=== PATIENT | female | born 1985 | race African-American/Black ===

== ENCOUNTER 2016-11-12 11:18 | Emergency (ER) | payer SELFPAY ==
[~2016-11-12] VITALS: Ht 157.5 cm; Wt 59.0 kg
[2016-11-12 11:19] VITALS: BP 121/73; PULSE 74; RESP 16; TEMP 98.8; O2SAT 100
--- NOTE | 2016-11-12 11:26 | PD ---
Physical Exam Date Seen by Provider: November 12, 2016 Time Seen by Provider: 11:23 Narrative Pt presents c/o weakness, back pain, abdominal pain. She states when she stands up she feels as if she will "fall out". Pt hasn't been eating due to nausea. She reports diarrhea, unknown fevers. Symptoms started Wednesday. No sick contacts. LMP years ago. No dysuria. Pain feels tight in her abdomen. VSS, awaiting bed placement,. Data Data Last Documented VS Vital Signs Date Time Temp Pulse Resp B/P Pulse Ox O2 Delivery O2 Flow Rate FiO2 11/12/16 11:19 98.8 74 16 121/73 100 Room Air [facility] Supervised Visit with CELY: Adriana Caro November 12, 2016 11:26
--- NOTE | 2016-11-12 11:40 | PD ---
HPI Chief Complaint: General Weakness Time Seen by Provider: 11:40 Travel History International Travel<30 days: No Contact w/Intl Traveler<30days: No Traveled to known affect area: No History of Present Illness HPI 31 Year-old female presents to the emergency department for evaluation of flank pain, urinary urgency, frequency, nausea, and she felt like she was going to pass out today. Patient states she has not eaten much today because of her nausea. Patient denies any recent illnesses, fever, chills. She has not actually vomited. Denies any bowel changes. Patient states she is relatively healthy. Denies any tea is a but cannot recall when her last menstrual cycle was. She denies a vaginal discharge or bleeding. She has no other symptoms to report. [facility] Past Medical History Medical History: Denies Significant Hx ?: Not LMP: years Social History Alcohol Use: No Tobacco Use: No Substance Use: No Allergies-Medications (Allergen,Severity, Reaction): Coded Allergies: No Known Allergies (Unverified , 11/12/16) Review of Systems Except as stated in HPI: all other systems reviewed are Neg Physical Exam Narrative GENERAL: Well-nourished female patient, ambulatory and in no acute distress SKIN: Focused skin assessment warm/dry. HEAD: Atraumatic. Normocephalic. EYES: Pupils equal and round. No scleral icterus. No injection or drainage. ENT: No nasal bleeding or discharge. Mucous membranes pink and moist. NECK: Trachea midline. No JVD. CARDIOVASCULAR: Regular rate and rhythm. No murmur appreciated. RESPIRATORY: No accessory muscle use. Clear to auscultation. Breath sounds equal bilaterally. GASTROINTESTINAL: Abdomen soft, non-tender, nondistended. Hepatic and splenic margins not palpable. MUSCULOSKELETAL: No obvious deformities. No clubbing. No cyanosis. No edema. NEUROLOGICAL: Awake and alert. No obvious cranial nerve deficits. Motor grossly within normal limits. Normal speech. PSYCHIATRIC: Appropriate mood and affect; insight and judgment normal. Data Data Last Documented VS Vital Signs Date Time Temp Pulse Resp B/P Pulse Ox O2 Delivery O2 Flow Rate FiO2 11/12/16 13:43 63 18 110/74 100 11/12/16 12:09 Room Air 11/12/16 11:19 98.8 Orders Complete Blood Count With Diff (11/12/16 11:43) Comprehensive Metabolic Panel (11/12/16 11:43) Lipase (11/12/16 11:43) Urinalysis - C+S If Indicated (11/12/16 11:43) Iv Access Insert/Monitor (11/12/16 11:43) Ecg Monitoring (11/12/16 11:43) Oximetry (11/12/16 11:43) Ondansetron Inj (Zofran Inj) (11/12/16 11:45) Sodium Chlor 0.9% 1000 Ml Inj (Ns 1000 M (11/12/16 11:43) Sodium Chloride 0.9% Flush (Ns Flush) (11/12/16 11:45) Ketorolac Inj (Toradol Inj) (11/12/16 11:45) Ed Urine Pregnancytest Poc (11/12/16 11:43) Labs Laboratory Tests Test 11/12/16 11/12/16 12:00 12:05 Urine Color YELLOW Urine Turbidity HAZY Urine pH 6.5 Urine Specific Hosmer 1.035 Urine Protein TRACE mg/dL Urine Glucose (UA) NEG mg/dL Urine Ketones NEG mg/dL Urine Occult Blood NEG Urine Nitrite NEG Urine Bilirubin NEG Urine Urobilinogen LESS THAN 2.0 MG/DL Urine Leukocyte Esterase NEG Urine RBC 1 /hpf Urine WBC 1 /hpf Urine Squamous Epithelial 13 /hpf Cells Urine Bacteria RARE /hpf Urine Hyaline Casts 1 /lpf Urine Mucus MANY /lpf Microscopic Urinalysis Comment CULT NOT INDICATED White Blood Count 10.3 TH/MM3 Red Blood Count 4.61 MIL/MM3 Hemoglobin 13.3 GM/DL Hematocrit 39.3 % Mean Corpuscular Volume 85.2 FL Mean Corpuscular Hemoglobin 28.8 PG Mean Corpuscular Hemoglobin 33.7 % Concent Red Cell Distribution Width 13.2 % Platelet Count 268 TH/MM3 Mean Platelet Volume 7.7 FL Neutrophils (%) (Auto) 57.9 % Lymphocytes (%) (Auto) 31.1 % Monocytes (%) (Auto) 8.4 % Eosinophils (%) (Auto) 2.1 % Basophils (%) (Auto) 0.5 % Neutrophils # (Auto) 6.0 TH/MM3 Lymphocytes # (Auto) 3.2 TH/MM3 Monocytes # (Auto) 0.9 TH/MM3 Eosinophils # (Auto) 0.2 TH/MM3 Basophils # (Auto) 0.1 TH/MM3 CBC Comment DIFF FINAL Differential Comment Sodium Level 138 MEQ/L Potassium Level 4.1 MEQ/L Chloride Level 103 MEQ/L Carbon Dioxide Level 29.2 MEQ/L Anion Gap 6 MEQ/L Blood Urea Nitrogen 15 MG/DL Creatinine 0.64 MG/DL Estimat Glomerular Filtration 108 ML/MIN Rate Random Glucose 90 MG/DL Calcium Level 9.0 MG/DL Total Bilirubin 0.5 MG/DL Aspartate Amino Transf 17 U/L (AST/SGOT) Alanine Aminotransferase 20 U/L (ALT/SGPT) Alkaline Phosphatase 75 U/L Total Protein 7.4 GM/DL Albumin 3.7 GM/DL Lipase 140 U/L [facility] Medical Decision Making Medical Screen Exam Complete: Yes Emergency Medical Condition: Yes Medical Record Reviewed: Yes Differential Diagnosis Normal examination versus hypoglycemia versus electrolyte abnormality versus UTI versus renal calculi versus gastritis versus viral syndrome Narrative Course 31-year-old female presents to emergency department for evaluation. Patient appears well and without distress. Her vital signs are stable. CBC and CMP are without acute concern. Urine is hazy with rare bacteria and many mucus. Culture is not indicated. Patient is given IV fluids. Upon assessment, she feels much better. She'll be discharged home at this time. She agrees to return immediately with any acute worsening of symptoms. Diagnosis Primary Impression: Flank pain Additional Impressions: Urinary urgency Light-headed feeling Referrals: Primary Care Physician Patient Instructions: Flank Pain (ED), General Instructions Departure Forms: Tests/Procedures, Work Release Enter return to work date: November 13, 2016 Additional Instructions: Maintain adequate oral hydration Follow-up with your primary care provider Return immediately with any acute worsening of symptoms Med/Other Pt SpecificInfo: No Change to Meds Disposition: 01 DISCHARGE HOME Condition: Stable GreeneRhona daley JAKE November 12, 2016 11:40
[2016-11-12] MEDS ORDERED: SODIUM CHLOR 0.9% 1000 ML INJ 1,000 ML IV SCH (11:43)
[2016-11-12] MEDS ORDERED: KETOROLAC TROMETHAMINE 30 MG/ML (IVP) VIAL IVP ONE (11:45)
[2016-11-12] MEDS ORDERED: SODIUM CHLORIDE 0.9% FLUSH 10 ML FLUSH IV FLUSH PRN (11:45)
[2016-11-12] MEDS ORDERED: ONDANSETRON HCL 4 MG/2 ML VIAL IVP ONE (11:45)
[2016-11-12 12:09] VITALS: BP 110/74; PULSE 74; RESP 16; O2SAT 100
[2016-11-12 12:21] LABS: BASOPHIL # 0.1 TH/MM3 (0-0.2); BASOPHIL % 0.5 % (0.0-2.0); EOSINOPHIL # 0.2 TH/MM3 (0-0.4); EOSINOPHIL % 2.1 % (0.0-4.0); HEMATOCRIT 39.3 % (35.0-46.0); HEMO FLAGS DIFF FINAL; LYMPH % 31.1 % (9.0-44.0); LYMPHOCYTE # 3.2 TH/MM3 (1.0-4.8); MEAN CELL VOLUME 85.2 FL (80.0-100.0); MEAN CORPUSCULAR HEMOGLOBIN 28.8 PG (27.0-34.0); MEAN CORPUSCULAR HGB CONC 33.7 % (32.0-36.0); MONO % 8.4 % (0.0-8.0); NEUT % 57.9 % (16.0-70.0); PLATELET COUNT 268 TH/MM3 (150-450); RED BLOOD COUNT 4.61 MIL/MM3 (4.00-5.30); RED CELL DISTRIBUTION WIDTH 13.2 % (11.6-17.2); WHITE BLOOD COUNT 10.3 TH/MM3 (4.0-11.0)
[2016-11-12 12:36] LABS: ANION GAP 6 MEQ/L (5-15); AST (GOT) 17 U/L (15-37); BICARBONATE 29.2 MEQ/L (21.0-32.0); BLOOD UREA NITROGEN 15 MG/DL (7-18); CHLORIDE 103 MEQ/L (98-107); GLOMERULAR FILTRATION RATE 108 ML/MIN (>89); POTASSIUM 4.1 MEQ/L (3.5-5.1); SODIUM (NA) 138 MEQ/L (136-145)
[2016-11-12 12:39] LABS: ALKALINE PHOSPHATASE 75 U/L (45-117); ALT (GPT) 20 U/L (10-53); TOTAL BILIRUBIN ADULT 0.5 MG/DL (0.2-1.0)
[2016-11-12 12:44] LABS: BACTERIA, URINE RARE /hpf; BLOOD, URINE NEG (NEG); COMMENT (UR) CULT NOT INDICATED; CULTURE IF INDICATED CULT NOT INDICATED; GLUCOSE,URINE NEG (NEG); HYALINE CAST, URINE 1 /lpf (RARE); KETONE, URINE NEG (NEG); MUCUS URINE MANY /lpf (OCC); NITRITE,URINE NEG (NEG); PH, URINE 6.5 (5.0-8.5); SQUAMOUS EPITHELIAL CELL URINE 13 /hpf (0-5); URINE COLOR YELLOW (YELLW/STRAW)
[2016-11-12 13:43] VITALS: BP 110/74
== END 2016-11-12 13:49 | disposition home or self-care (01) ==
LOC: NEPD 11:18
DX: R10.84 Generalized abdominal pain (principal); R39.15 Urgency of urination; R42 Dizziness and giddiness
CPT/HCPCS: 80053; 81001; 83690; 84703; 85025; 96361; 96374; 96375; 99283; J1885; J2405; J7030

== ENCOUNTER 2017-03-30 21:50 | Emergency (ER) | payer SELFPAY ==
[~2017-03-30] VITALS: Ht 157.5 cm; Wt 60.0 kg
[2017-03-30 21:53] VITALS: BP 125/89; PULSE 89; RESP 16; TEMP 98.8; O2SAT 98
[2017-03-31] MEDS ORDERED: ONDANSETRON HCL 4 MG/2 ML VIAL IVP ONE (00:15)
[2017-03-31] MEDS ORDERED: AZITHROMYCIN PWD FOR SUSP 1 GM PACKET PO ONE (00:15)
[2017-03-31] MEDS ORDERED: cefTRIAXone INJ 1,000 MG in SODIUM CHLORIDE 0.9% INJ 100 ML IV ONE (00:15)
[2017-03-31] MEDS ORDERED: KETOROLAC TROMETHAMINE 30 MG/ML (IVP) VIAL IV PUSH ONE (00:15)
--- NOTE | 2017-03-31 00:47 | PD ---
HPI Chief Complaint: Abdominal Pain Time Seen by Provider: 23:51 Travel History International Travel<30 days: No Contact w/Intl Traveler<30days: No Traveled to known affect area: No History of Present Illness HPI C/O SUPRAPUBIC DISCOMFORT, NONRAD, PRESSURE, 6/10, ASSOC WITH VAG DC PER PT, DENIES N/V/D/FEVER, ONGOING FOR LAST 2 DAYS...NO ALLEVIATING/AGGRAVATING FACTORS PFSH Past Medical History ?: Not Social History Alcohol Use: No Tobacco Use: No Substance Use: No Allergies-Medications (Allergen,Severity, Reaction): Coded Allergies: No Known Allergies (Unverified , 03/30/17) Reported Meds & Prescriptions Reported Meds & Active Scripts Active Gyne-Lotrimin 3 Vaginal (Clotrimazole Vaginal) 2% Cream 1 Appl VAGINAL HS Fluconazole 150 Mg Tab 150 Mg PO ONCE Review of Systems Except as stated in HPI: all other systems reviewed are Neg Gastrointestinal: Positive: Abdominal Pain (SUPRAPUBIC) Genitourinary: Positive: Discharge Physical Exam Narrative GENERAL: SKIN: Warm and dry. HEAD: Atraumatic. Normocephalic. EYES: Pupils equal and round. No scleral icterus. No injection or drainage. ENT: No nasal bleeding or discharge. Mucous membranes pink and moist. NECK: Trachea midline. No JVD. CARDIOVASCULAR: Regular rate and rhythm. RESPIRATORY: No accessory muscle use. Clear to auscultation. Breath sounds equal bilaterally. GASTROINTESTINAL: Abdomen soft, non-tender, nondistended. PELVIC PERFORMED WITH KAUSHAL ALLRED AT BEDSIDE: NO CMT, WHITE D/C NOTED THROUGHOUT VAULT. MUSCULOSKELETAL: Extremities without clubbing, cyanosis, or edema. No obvious deformities. NEUROLOGICAL: Awake and alert. No obvious cranial nerve deficits. Motor grossly within normal limits. Five out of 5 muscle strength in the arms and legs. Normal speech. PSYCHIATRIC: Appropriate mood and affect; insight and judgment normal. Data Data Last Documented VS Vital Signs Date Time Temp Pulse Resp B/P (MAP) Pulse Ox O2 Delivery O2 Flow Rate FiO2 03/31/17 03:08 70 18 118/62 (80) 99 03/30/17 21:53 98.8 Room Air Orders Orders Complete Blood Count With Diff (03/31/17 00:10) Comprehensive Metabolic Panel (03/31/17 00:10) Gc And Chlamydia Pcr (03/31/17 00:10) Wet Prep Profile (03/31/17 00:10) Iv Access Insert/Monitor (03/31/17 00:10) Ceftriaxone Inj (Rocephin Inj) (03/31/17 00:15) Azithromycin Powd Pack (Zithromax Powd P (03/31/17 00:15) Ondansetron Inj (Zofran Inj) (03/31/17 00:15) Ed Urine Pregnancytest Poc (03/31/17 00:10) Ketorolac Inj (Toradol Inj) (03/31/17 00:15) Labs Laboratory Tests Test 03/31/17 00:40 White Blood Count 9.3 TH/MM3 Red Blood Count 4.49 MIL/MM3 Hemoglobin 12.9 GM/DL Hematocrit 38.4 % Mean Corpuscular Volume 85.6 FL Mean Corpuscular Hemoglobin 28.8 PG Mean Corpuscular Hemoglobin Concent 33.6 % Red Cell Distribution Width 14.1 % Platelet Count 266 TH/MM3 Mean Platelet Volume 7.6 FL Neutrophils (%) (Auto) 52.8 % Lymphocytes (%) (Auto) 33.5 % Monocytes (%) (Auto) 10.4 % Eosinophils (%) (Auto) 2.7 % Basophils (%) (Auto) 0.6 % Neutrophils # (Auto) 4.9 TH/MM3 Lymphocytes # (Auto) 3.1 TH/MM3 Monocytes # (Auto) 1.0 TH/MM3 Eosinophils # (Auto) 0.2 TH/MM3 Basophils # (Auto) 0.1 TH/MM3 CBC Comment DIFF FINAL Differential Comment Clue Cells (Wet Prep) NONE SEEN Vaginal Trichomonas (Wet Prep) NONE SEEN Vaginal Yeast (Wet Prep) NONE SEEN Blood Urea Nitrogen 20 MG/DL Creatinine 0.70 MG/DL Random Glucose 93 MG/DL Total Protein 7.8 GM/DL Albumin 3.6 GM/DL Calcium Level 9.0 MG/DL Alkaline Phosphatase 80 U/L Aspartate Amino Transf (AST/SGOT) 14 U/L Alanine Aminotransferase (ALT/SGPT) 24 U/L Total Bilirubin 0.4 MG/DL Sodium Level 135 MEQ/L Potassium Level 4.4 MEQ/L Chloride Level 102 MEQ/L Carbon Dioxide Level 27.1 MEQ/L Anion Gap 6 MEQ/L Estimat Glomerular Filtration Rate 118 ML/MIN Chlamydia trachomatis DNA (PCR) NOT DETECTED Neisseria gonorrhoeae DNA (PCR) NOT DETECTED MDM Medical Decision Making Medical Screen Exam Complete: Yes Emergency Medical Condition: Yes Medical Record Reviewed: Yes Differential Diagnosis UTI V PREG RELATED V VAGINITIS Narrative Course AFTER EVALUATION NO D/C C/W GONORRHEA OR CHLAMYDIA SO ABX ORDERS DISCONTINUED AND PATIENT ADVISED OF DX, ALSO ADVISED THAT SHOULD STD TEST COME BACK POSITIVE WILL BE CALLED BACK AND PROVIDED WITH PHARMACY RX...PT VOICES UNDERSTANDING Diagnosis Primary Impression: JUNG VAGINITIS Patient Instructions: General Instructions, Vulvovaginal Candidiasis (ED) Scripts Clotrimazole Vaginal (Gyne-Lotrimin 3 Vaginal) 2% Cream 1 APPL VAGINAL HS for Fungal Infection, #21 GM 0 Refills Prov: Rojelio Ramirez MD 03/31/17 Fluconazole (Fluconazole) 150 Mg Tab 150 MG PO ONCE for Infection, #1 TAB 0 Refills Prov: Rojelio Ramirez MD 03/31/17 Disposition: 01 DISCHARGE HOME Condition: Stable Rojelio Ramirez MD Mar 31, 2017 00:47
[2017-03-31 01:02] LABS: AUTOMATED NEUTROPHIL # 4.9 TH/MM3 (1.8-7.7); BASOPHIL # 0.1 TH/MM3 (0-0.2); BASOPHIL % 0.6 % (0.0-2.0); EOSINOPHIL # 0.2 TH/MM3 (0-0.4); EOSINOPHIL % 2.7 % (0.0-4.0); HEMATOCRIT 38.4 % (35.0-46.0); HEMO FLAGS DIFF FINAL; LYMPH % 33.5 % (9.0-44.0); LYMPHOCYTE # 3.1 TH/MM3 (1.0-4.8); MEAN CELL VOLUME 85.6 FL (80.0-100.0); MEAN CORPUSCULAR HEMOGLOBIN 28.8 PG (27.0-34.0); MEAN CORPUSCULAR HGB CONC 33.6 % (32.0-36.0); MONO % 10.4 % (0.0-8.0); NEUT % 52.8 % (16.0-70.0); PLATELET COUNT 266 TH/MM3 (150-450); RED BLOOD COUNT 4.49 MIL/MM3 (4.00-5.30); RED CELL DISTRIBUTION WIDTH 14.1 % (11.6-17.2); WHITE BLOOD COUNT 9.3 TH/MM3 (4.0-11.0)
[2017-03-31 01:12] LABS: ANION GAP 6 MEQ/L (5-15); AST (GOT) 14 U/L (15-37); BICARBONATE 27.1 MEQ/L (21.0-32.0); BLOOD UREA NITROGEN 20 MG/DL (7-18); CHLORIDE 102 MEQ/L (98-107); GLOMERULAR FILTRATION RATE 118 ML/MIN (>89); POTASSIUM 4.4 MEQ/L (3.5-5.1); SODIUM (NA) 135 MEQ/L (136-145)
[2017-03-31 01:21] LABS: ALKALINE PHOSPHATASE 80 U/L (45-117); ALT (GPT) 24 U/L (10-53); TOTAL BILIRUBIN ADULT 0.4 MG/DL (0.2-1.0)
[2017-03-31 02:45] LABS: CHLAMYDIA PCR NOT DETECTED (NOT DETECT); NEISSERIA PCR NOT DETECTED (NOT DETECT)
[2017-03-31] MEDS ORDERED: GYNE3CRE VAGINAL (03:02)
[2017-03-31] MEDS ORDERED: FLUC150T PO (03:02)
[2017-03-31 03:08] VITALS: BP 118/62
== END 2017-03-31 03:19 | disposition home or self-care (01) ==
LOC: NEPC 21:50
DX: B37.3 Candidiasis of vulva and vagina (principal)
CPT/HCPCS: 80053; 84703; 85025; 87210; 87491; 87591; 99284

== ENCOUNTER 2017-06-25 18:50 | Emergency (ER) | payer SELFPAY ==
[~2017-06-25] VITALS: Ht 152.4 cm; Wt 55.0 kg
[~2017-06-25 18:50] MED LIST: FLUC150T PO; GYNE3CRE VAGINAL
[2017-06-25 18:51] VITALS: BP 116/63; PULSE 88; RESP 12; TEMP 97.6; O2SAT 97
[2017-06-25] MEDS ORDERED: HYDR-3516 PO (21:15)
[2017-06-25] MEDS ORDERED: PENI500T PO (21:15)
[2017-06-25] MEDS ORDERED: PENICILLIN V POTASSIUM 500 MG TAB PO ONE (21:15)
[2017-06-25] MEDS ORDERED: LIDOCAINE HCL 1% 50 ML VIAL INFIL ONE (21:15)
[2017-06-25] MEDS ORDERED: BACL10TA PO (21:15)
--- NOTE | 2017-06-25 21:15 | PD ---
HPI Chief Complaint: Oral / Dental Pain or Problem Time Seen by Provider: 20:54 Travel History International Travel<30 days: No Contact w/Intl Traveler<30days: No Traveled to known affect area: No History of Present Illness HPI 31-year-old female here for evaluation of right lower dental pain and mid/upper back pain. Patient reports that she has had mid/upper back pain for about a week. She denies trauma. She describes the pain as burning/aching. She reports that she has taken Tylenol, ibuprofen, tramadol, naproxen, and other pain medications without relief of symptoms. Pain is worse with movement and palpation. No dyspnea. No hemoptysis. Patient also reports 3 days of worsening right lower dental/molar pain. She reports subjective fevers and chills. She denies history of IV drug use. No difficulty swallowing. No paresthesias or motor deficits. She does not have a primary care physician. She denies urinary symptoms. States that she has not had sexual intercourse in over 6 months and cannot be . [facility] Past Medical History Medical History: Denies Significant Hx Diminished Hearing: No Influenza Vaccination: No ?: Not : 0 Para: 0 Past Surgical History Surgical History: No Previous Surgery Social History Alcohol Use: Yes (occassionally) Tobacco Use: Yes (4 cigarettes per day) Substance Use: No Allergies-Medications (Allergen,Severity, Reaction): Coded Allergies: No Known Allergies (Unverified Adverse Reaction, Unknown, 06/25/17) Reported Meds & Prescriptions Reported Meds & Active Scripts Active Review of Systems Except as stated in HPI: all other systems reviewed are Neg Physical Exam Narrative GENERAL: Well-developed, well-nourished, comfortable, no apparent distress. SKIN: Focused skin assessment warm/dry. HEAD: Atraumatic. Normocephalic. EYES: Pupils equal and round. No scleral icterus. No injection or drainage. ENT: No nasal bleeding or discharge. Mucous membranes pink and moist. Very poor dentition with several cavities and several missing teeth. There is tenderness to the right lower molar which has a very large cavity. No fluctuance or induration. No drooling or stridor. No trismus. No submandibular or submental edema. No sublingual edema. NECK: Trachea midline. No JVD. CARDIOVASCULAR: Regular rate and rhythm. RESPIRATORY: No accessory muscle use. Clear to auscultation. Breath sounds equal bilaterally. GASTROINTESTINAL: Abdomen soft, non-tender, nondistended. Hepatic and splenic margins not palpable. MUSCULOSKELETAL: No obvious deformities. No clubbing. No cyanosis. No edema. Mild midline thoracic spine tenderness without step-off. No midline cervical spine or lumbar spine tenderness or step-off. NEUROLOGICAL: Awake and alert. No obvious cranial nerve deficits. Motor grossly within normal limits. Normal speech. No focal deficits. PSYCHIATRIC: Appropriate mood and affect; insight and judgment normal. Data Data Last Documented VS Vital Signs Date Time Temp Pulse Resp B/P (MAP) Pulse Ox O2 Delivery O2 Flow Rate FiO2 06/25/17 18:51 97.6 88 12 116/63 (80) 97 Orders Orders Lidocaine 1% Inj (50 Ml) (Xylocaine 1% I (06/25/17 21:15) Penicillin V Potassium (Veetids) (06/25/17 21:15) [facility] Medical Decision Making Medical Screen Exam Complete: Yes Emergency Medical Condition: Yes Differential Diagnosis Dental cavities, dental infection, muscular skeletal back pain Narrative Course Vital signs are within normal limits. To the patient that I would like to perform an inferior alveolar nerve block and explain the procedure in detail with her, however when she saw the syringe with a needle, she adamantly refused. Patient is overall very well-appearing. There is mild midline thoracic spine tenderness. I do not believe she has a PE. There are no focal deficits or weakness on exam. I do not believe that imaging is warranted at this time. She does have significant dental decay. No clinical signs of deep space neck infections. Plan is to discharge the patient home with instructions follow-up with a primary care physician this week as well as a dentist this week. I will start her on Pen-Vee K, pain medication, and muscle relaxants. She was informed not to operate heavy machinery or drink alcohol on these medications. She was informed on when to return to the emergency department. She verbalizes understanding and agreement with plan. Diagnosis Primary Impression: Pain, dental Additional Impression: Back pain Qualified Codes: M54.6 - Pain in thoracic spine Referrals: [facility] 3 days Dentist 3 days Primary Care Physician 3 days Additional Instructions: Follow-up with a primary care physician this week. Follow-up with a dentist this week. Return to the emergency department for worsening symptoms or any other concerns. Scripts Hydrocodone-Acetaminophen (Hydrocodone-Acetaminophen) 5-325 mg Tab 1 TAB PO Q6H Y for PAIN, #10 TAB 0 Refills Prov: Zev Humphreys MD 06/25/17 Baclofen (Baclofen) 10 Mg Tab 10 MG PO TID for Muscle Spasm, #10 TAB 0 Refills Prov: Zev Humphreys MD 06/25/17 Penicillin V Potassium (Penicillin V Potassium) 500 Mg Tab 500 MG PO Q6H for Infection for 7 Days, #28 TAB 0 Refills Prov: Zev Humphreys MD 06/25/17 Disposition: 01 DISCHARGE HOME Condition: Stable Zev Humphreys MD Jun 25, 2017 21:15
== END 2017-06-25 21:26 | disposition home or self-care (01) ==
LOC: NEPD 18:50
DX: K08.89 Other specified disorders of teeth and supporting structures (principal); M54.6 Pain in thoracic spine; F17.210 Nicotine dependence, cigarettes, uncomplicated
CPT/HCPCS: 99284